=== PATIENT | male | born 1975 | race Caucasian/White ===

== ENCOUNTER 2024-10-05 06:25 | Day surgery (SDC) | payer OTHER, SELFPAY | END 2024-10-05 14:07 | disposition home or self-care (01) | LOC: GI 06:25 | PROVIDERS: ATTENDING PHYSICIAN Internal Medicine Gastroenterology; FAMILY PHYSICIAN Internal Medicine | DX: C15.5 Malignant neoplasm of lower third of esophagus (principal); R68.81 Early satiety; R63.4 Abnormal weight loss | CPT/HCPCS: 43202; 88305; 88342; 88360 ==